=== PATIENT | male | born 1960 | race Caucasian/White ===

== ENCOUNTER 2023-09-01 16:47 | Emergency (ER) | payer BC, SELFPAY ==
--- NOTE | ~2023-09-01 | XR_ITS ---
EXAMINATION: XR wrist LT min 3V DATE: 09/01/2023 17:08 INDICATION: Left wrist injury. Fall. TECHNIQUE: 4 views of left wrist were obtained. COMPARISON: None. FINDINGS: Bone alignment is normal. No fracture. There is mild osteoarthritis of first carpometacarpa l joint. IMPRESSION: 1. Mild osteoarthritis of first carpometacarpal joint. Reviewed, dictated and finalized at location E.
[2023-09-01 17:10] VITALS: BP 159/89; PULSE 70; RESP 16; TEMP 37.1; O2SAT 100
--- NOTE | 2023-09-01 17:15 | ED.UPPEXIN ---
HPI - Extremity Injury (Upper) General Chief Complaint: Extremity Injury, Upper Stated Complaint: INJURED L WRIST Time Seen by Provider: 09/01/23 17:02 Source: patient and RN notes reviewed Mode of arrival: ambulatory Limitations: no limitations History of Present Illness HPI narrative: Patient presents today complaining of a left wrist injury. He tripped backwards outside approximately 2 hours prior to arrival and fell onto an outstretched hand, hyperextending his wrist. Currently reports that his pain is mild, which increases with movement. He has applied ice prior to arrival. Denies numbness or tingling in the wrist or hand. Related Data Home Medications Medication Instructions Recorded Confirmed atorvastatin 10 mg tablet 10 mg PO DAILY 09/01/23 09/01/23 Allergies Allergy/AdvReac Type Severity Reaction Status Date / Time codeine Allergy Rash Verified 09/01/23 17:03 Review of Systems Review of Systems: CONSTITUTIONAL: Denies body aches, fever, chills, or sweats. EYES: Denies visual changes, redness, or discharge. ENT: Denies rhinorrhea, congestion, sore throat, or otalgia. CARDIOVASCULAR: Denies chest pain, palpitations, or edema. RESPIRATORY: Denies cough or dyspnea. GASTROINTESTINAL: Denies abdominal pain, nausea, vomiting, or diarrhea. GENITOURINARY: Denies dysuria or hematuria. SKIN: Denies rash, itching, or wounds. MUSCULOSKELETAL: Denies back pain, or myalgia.+ left wrist pain NEUROLOGIC: Denies headache, numbness, tingling, or weakness. PSYCH: Denies depression or anxiety. PMFSH Comments At time of signature, I have reviewed and agree with nursing past medical, surgical, social and family history unless otherwise noted. Please see nursing chart for further information. There is no relevant family history pertinent to the presenting complaint Exam Narrative: GENERAL: Well-appearing, well-nourished, and in no acute distress. HEAD: Normocephalic, atraumatic. EYES: EOMI. No redness or drainage. Conjunctivae normal. ENT: Mucous membranes pink and moist. NECK: Normal AROM. CHEST: No respiratory distress. EXTREMITIES: Left wrist: Patient localizes pain to the distal radius. Wrist seems to be nontender to palpation. No snuffbox tenderness. No ecchymosis, or erythema noted. Scant edema noted about the wrist. Distal sensation intact. Capillary refill normal. Radial pulse normal. Pain elicited with P ROM in all directions. SKIN: Warm, dry, no rash. Capillary refill normal. Normal skin turgor. NEURO: No focal deficits. Alert and oriented x3. Gait steady. PSYCH: Normal affect. No signs of depression or anxiety. Course Course Level of Care: Express Care Visit Vital Signs Vital signs: Vital Signs Temperature 98.8 F 09/01/23 17:10 Pulse Rate 70 09/01/23 17:10 Respiratory Rate 16 09/01/23 17:10 Blood Pressure 159/89 H 09/01/23 17:10 Pulse Oximetry 100 09/01/23 17:10 Temperature 98.8 F 09/01/23 17:10 Pulse Rate 70 09/01/23 17:10 Respiratory Rate 16 09/01/23 17:10 Blood Pressure 159/89 H 09/01/23 17:10 Pulse Oximetry 100 09/01/23 17:10 Reviewed MDM - Extremity Injury (Upper) MDM Narrative Medical decision making narrative: X-ray shows osteoarthritis, otherwise normal. Discussed conservative treatment and PCP/sore throat follow-up. Anticipatory guidance Differential Diagnosis Differential diagnosis: Likely sprain and strain of wrist and fracture of wrist Imaging Data Radiologist's impression: ITS Impressions Wrist X-Ray 09/01/23 17:10 IMPRESSION: 1. Mild osteoarthritis of first carpometacarpal joint. Critical Care Time Critical Care Time Critical Care Time: No Discharge Plan Discharge Clinical Impression: Left wrist sprain Qualifiers: Encounter type: initial encounter Qualified Code(s): S63.502A - Unspecified sprain of left wrist, initial encounter Patient Disposition: Home, Self-Care Condition: Sta
== END 2023-09-01 17:32 | disposition home or self-care (01) ==
PROVIDERS: Emergency Provider Nurse Practitioner
DX: S63.502A Unspecified sprain of left wrist, initial encounter (principal); W01.0XXA Fall on same level from slipping, tripping and stumbling without subsequent striking against object, initial encounter; E78.00 Pure hypercholesterolemia, unspecified
CPT/HCPCS: 73110; 99213; G0463